=== PATIENT | female | born 1955 | race Caucasian/White ===

== ENCOUNTER → 2017-04-12 | Outpatient (CLI) | payer BC ==
--- NOTE | 2017-04-12 11:10 | RAD ---
DATE: 04/12/2017 EXAM: MAMMO [facility] SCREENING BILATERAL HISTORY: Routine screening COMPARISON: 10/19/2015, 10/07/2015 This study was interpreted with the benefit of Computerized Aided Detection (CAD). The breast parenchyma is heterogeneously dense, which could reduce sensitivity of mammography. Breast parenchyma level C. FINDINGS: 2-D and 3-D tomosynthesis imaging was performed in CC and MLO projections. There is a stable benign-appearing lymph node type density in the posterolateral aspect of the left breast. No new or enlarging breast densities are seen. Slightly increased fibroglandular density in the right retroareolar region just lateral to the midline is unchanged and probably represents a patch of normal fibroglandular tissue. Scattered benign type calcifications are again noted. No suspicious microcalcifications have developed. IMPRESSION: Stable mammograms without evidence of malignancy. BI-RADS CATEGORY: 2 BENIGN FINDING(S) RECOMMENDED FOLLOW-UP: 12M 12 MONTH FOLLOW-UP PQRS compliance statement: Patient information was entered into a reminder system with a target due date for the next mammogram. Mammography is a sensitive method for finding small breast cancers, but it does not detect them all and is not a substitute for careful clinical examination. A negative mammogram does not negate a clinically suspicious finding and should not result in delay in biopsying a clinically suspicious abnormality. "Our facility is accredited by the [employer] Mammography [employer]."
== END | disposition home or self-care (01) ==
LOC: MAMMO 09:32
PROVIDERS: ATTEND Nurse Practitioner Adult Health
DX: Z12.31 Encounter for screening mammogram for malignant neoplasm of breast (principal)
CPT/HCPCS: 77063; G0202; 77067

== ENCOUNTER 2018-04-22 16:44 | Emergency (ER) | payer BC, OTHER ==
[~2018-04-22] VITALS: Ht 165.1 cm; Wt 83.0 kg
--- NOTE | 2018-04-22 17:05 | PHYS DOC ---
Adult General Chief Complaint Chief Complaint: BLOOD IN URINE [facility] HPI Patient is a 62-year-old female who presents with complaint of burning with urination and gross hematuria that started today. Patient states that her first episode of hematuria was just a couple of hours ago and states that she has been having burning with urination for the last few hours. She denies any fever. She does admit to some back pain that is primarily on her right side. She denies any nausea or vomiting and also denies fever. Patient denies any exacerbating or alleviating factors. Review of Systems Review of Systems Constitutional: Denies fever or chills [] Respiratory: Denies cough or shortness of breath [] Cardiovascular: No additional information not addressed in HPI [] GI: Denies abdominal pain, nausea, vomiting or diarrhea [] : Positive dysuria and hematuria [] Musculoskeletal: Complains of right sided lower back pain [] All other systems were reviewed and found to be within normal limits, except as documented in this note. Allergies Allergies Allergies Coded Allergies Type Severity Reaction Last Updated Verified No Known Drug Allergies 04/22/18 No Physical Exam Physical Exam Constitutional: Well developed, well nourished, no acute distress, non-toxic appearance. [] HENT: Normocephalic, atraumatic, bilateral external ears normal, oropharynx moist, no oral exudates, nose normal. [] Eyes: PERRLA, EOMI, conjunctiva normal, no discharge. [] Neck: Normal range of motion, no tenderness, supple, no stridor. [] Cardiovascular: Regular rate and rhythm [] Lungs & Thorax: Bilateral breath sounds clear to auscultation [] Abdomen: Bowel sounds normal, soft, no tenderness. [] Skin: Warm, dry, no erythema, no rash. [] Back: No CVA tenderness. [] Extremities: No tenderness, no cyanosis, no clubbing, ROM intact, no edema. [] Neurologic: Alert and oriented X 3, normal motor function, normal sensory function, no focal deficits noted. [] EKG EKG [] Radiology/Procedures Radiology/Procedures [] Impressions: PROCEDURE: CT ABDOMEN PELVIS WO CONTRAST CT scan abdomen and pelvis without contrast 04/22/2018 CLINICAL HISTORY: Right flank pain and hematuria. TECHNIQUE: Unenhanced, contiguous, 0.625 mm axial sections were obtained through the abdomen and pelvis. One or more of the following individualized dose reduction techniques were utilized for this study: 1. Automated exposure control. 2. Adjustment of the mA and/or kV according to patient size. 3. Use of iterative reconstruction technique. Findings: Images through the lung bases demonstrate a 3 mm calcified granuloma involving the right lower lobe. A 2 mm noncalcified nodule is seen lateral to this. A 6 mm noncalcified nodule is seen inferior to this within the right lower lobe. A 3 mm partially calcified nodule is seen involving the left lower lobe. The liver parenchyma has a decreased attenuation consistent with mild fatty infiltration. The liver is mildly enlarged measuring 21 cm in length. The spleen, pancreas, and left adrenal gland are within normal limits. A 2.4 cm rounded low-attenuation lesion is seen involving the right adrenal gland. This likely represents an adrenal adenoma. A 2 cm rounded low-attenuation lesion is involving the midpole of the left kidney. A 1 cm low-attenuation lesion is involving lower pole left kidney. These likely represent cysts. No renal or ureteral calculus is seen. There is no evidence of obstruction of either collecting system. Atherosclerotic calcification of the abdominal aorta is seen. The abdominal aorta tapers normally. The gallbladder is contracted. No free fluid or free air is seen within the abdomen. There is no evidence of bowel obstruction. The appendix is well-visualized and is within normal limits. There is a small fat-containing umbilical hernia. This measures 2.6 cm in size. Multiple diverticula are seen involving the sigmoid colon. No inflammatory changes are seen in the adjacent fat. Images through the pelvis demonstrate the urinary bladder distended with urine. Calcifications are seen within the pelvis consistent with phleboliths. No adnexal mass is seen. No free fluid is noted. No distal ureteral calculus is seen. Surgical clips are seen within the right inguinal region. Degenerative changes are seen involving the lower thoracic and throughout the lumbar spine and both hips. IMPRESSION: No acute abnormality is seen. Electronically signed by: Kris Maloney MD (04/22/2018 5:26 PM) [facility] Course & Med Decision Making Course & Med Decision Making Pertinent Labs and Imaging studies reviewed. (See chart for details) [] Dragon Disclaimer Dragon Disclaimer This electronic medical record was generated, in whole or in part, using a voice recognition dictation system. Departure Departure: Impression: Primary Impression: UTI (urinary tract infection) Disposition: 01 HOME, SELF-CARE Condition: STABLE Referrals: FABIOLA HERNANDEZ MD (PCP) Patient Instructions: Hematuria, Adult, Urinary Tract Infection Scripts Phenazopyridine Hcl (PYRIDIUM) 100 Mg Tablet 100 MG PO TID PRN for URINARY PAIN, #12 TAB Prov: TRINA BENTON Jr. DO 04/22/18 Sulfamethoxazole/Trimethoprim (BACTRIM DS TABLET) 1 Each Tablet 1 TAB PO BID for infection, #14 TAB Prov: TRINA BENTON Jr. DO 04/22/18 Problem Qualifiers Primary Impression: UTI (urinary tract infection) Urinary tract infection type: site unspecified Hematuria presence: with hematuria Qualified Codes: N39.0 - Urinary tract infection, site not specified ; R31.9 - Hematuria, unspecified TRINA BENTON Jr. DO Apr 22, 2018 17:05
--- NOTE | 2018-04-22 17:30 | RAD ---
CT scan abdomen and pelvis without contrast 04/22/2018 CLINICAL HISTORY: Right flank pain and hematuria. TECHNIQUE: Unenhanced, contiguous, 0.625 mm axial sections were obtained through the abdomen and pelvis. One or more of the following individualized dose reduction techniques were utilized for this study: 1. Automated exposure control. 2. Adjustment of the mA and/or kV according to patient size. 3. Use of iterative reconstruction technique. Findings: Images through the lung bases demonstrate a 3 mm calcified granuloma involving the right lower lobe. A 2 mm noncalcified nodule is seen lateral to this. A 6 mm noncalcified nodule is seen inferior to this within the right lower lobe. A 3 mm partially calcified nodule is seen involving the left lower lobe. The liver parenchyma has a decreased attenuation consistent with mild fatty infiltration. The liver is mildly enlarged measuring 21 cm in length. The spleen, pancreas, and left adrenal gland are within normal limits. A 2.4 cm rounded low-attenuation lesion is seen involving the right adrenal gland. This likely represents an adrenal adenoma. A 2 cm rounded low-attenuation lesion is involving the midpole of the left kidney. A 1 cm low-attenuation lesion is involving lower pole left kidney. These likely represent cysts. No renal or ureteral calculus is seen. There is no evidence of obstruction of either collecting system. Atherosclerotic calcification of the abdominal aorta is seen. The abdominal aorta tapers normally. The gallbladder is contracted. No free fluid or free air is seen within the abdomen. There is no evidence of bowel obstruction. The appendix is well-visualized and is within normal limits. There is a small fat-containing umbilical hernia. This measures 2.6 cm in size. Multiple diverticula are seen involving the sigmoid colon. No inflammatory changes are seen in the adjacent fat. Images through the pelvis demonstrate the urinary bladder distended with urine. Calcifications are seen within the pelvis consistent with phleboliths. No adnexal mass is seen. No free fluid is noted. No distal ureteral calculus is seen. Surgical clips are seen within the right inguinal region. Degenerative changes are seen involving the lower thoracic and throughout the lumbar spine and both hips. IMPRESSION: No acute abnormality is seen. Electronically signed by: Kris Maloney MD (04/22/2018 5:26 PM) [facility]
[2018-04-22 17:33] LABS: BACTERIA,URINE MOD /HPF (0-FEW); BILIRUBIN,URINE NEG (NEG); CLARITY,URINE BLOODY; COLOR,URINE RED; GLUCOSE,URINE NEG (NEG); NITRITE,URINE NEG (NEG); RBC,URINE >40 /HPF (0-2); SQUAMOUS EPITHELIAL CELL,UR FEW /LPF; UROBILINOGEN,URINE 0.2 mg/dL (0.2 mg/dL); WBC,URINE >40 /HPF (0-4)
[2018-04-22] MEDS ORDERED: SMZ/TMP 800/160MG TABLET. PO ONE (17:45)
[2018-04-22] MEDS ORDERED: PHENAZOPYRIDINE 100 MG TABLET. PO ONE (17:45)
[2018-04-22] MEDS ORDERED: PHEN100T82 PO (17:55)
[2018-04-22] MEDS ORDERED: SULF1TAB24 PO (17:55)
[2018-04-22 18:05] VITALS: BP 158/96
== END 2018-04-22 18:10 | disposition home or self-care (01) ==
LOC: ER 16:44
DX: N39.0 Urinary tract infection, site not specified (principal); R31.0 Gross hematuria
CPT/HCPCS: 74176; 81001; 87086; 99284-25

== ENCOUNTER 2018-06-08 10:14 | Emergency (ER) | payer BC, OTHER ==
[~2018-06-08] VITALS: Ht 165.1 cm; Wt 72.6 kg
[~2018-06-08 10:14] MED LIST: PHEN100T82 PO; SULF1TAB24 PO
[2018-06-08] MEDS ORDERED: TRAM-48 PO (11:26)
[2018-06-08] MEDS ORDERED: IBUP800T19 PO (11:26)
[2018-06-08] MEDS ORDERED: PENI500T PO (11:26)
--- NOTE | 2018-06-08 11:27 | PHYS DOC ---
Past History Past Medical History: No Pertinent History Past Surgical History: Smoking: Non-smoker Alcohol Use: Occasionally Drug Use: None Adult General Chief Complaint Chief Complaint: DENTAL PROBLEM HPI HPI Patient is a 62 year old female who presents with facial edema and dental pain. She'll complaining of right lower jaw and tooth pain for the last 2 days with temperature edema of face and right side of neck. Patient states her edema getting worse but her pain is getting better today and rated her pain 3/10. Patient denies fever, nausea and vomiting, chest pain and shortness of breath. Review of Systems Review of Systems Constitutional: Denies fever or chills [] Eyes: Denies change in visual acuity, redness, or eye pain [] HENT: Denies nasal congestion or sore throat, reports dental pain Cardiovascular: No additional information not addressed in HPI [] GI: Denies abdominal pain, nausea, vomiting, bloody stools or diarrhea [] : Denies dysuria or hematuria [] Musculoskeletal: Denies back pain or joint pain [] Integument: Denies rash or skin lesions [] Neurologic: Denies headache, focal weakness or sensory changes [] Endocrine: Denies polyuria or polydipsia [] All other systems were reviewed and found to be within normal limits, except as documented in this note. Current Medications Current Medications Current Medications Medications (Trade) Dose Ordered Sig/Aditya Start Time Stop Time Status Last Admin Dose Admin Ceftriaxone Sodium (Rocephin Im) 1 gm 1X ONCE 06/08/18 11:15 06/08/18 11:16 UNV Allergies Allergies Allergies Coded Allergies Type Severity Reaction Last Updated Verified No Known Drug Allergies 04/22/18 No Physical Exam Physical Exam Constitutional: Well developed, well nourished, mild acute distress, non-toxic appearance. [] HENT: Normocephalic, atraumatic, right lower facial and neck mild edema without erythema or tenderness. #31with edema and tenderness, bilateral external ears normal, oropharynx moist, no oral exudates, nose normal. [] Eyes: PERRLA, EOMI, conjunctiva normal, no discharge. [] Neck: Normal range of motion, no tenderness, supple, no stridor. [] Cardiovascular:Heart rate regular rhythm, no murmur [] Lungs & Thorax: Bilateral breath sounds clear to auscultation [] Skin: Warm, dry, no erythema, no rash. [] Extremities: No tenderness, no cyanosis, no clubbing, ROM intact, no edema. [] Neurologic: Alert and oriented X 3 Psychologic: Affect normal, judgement normal, mood normal. [] EKG EKG [] Radiology/Procedures Radiology/Procedures [] Course & Med Decision Making Course & Med Decision Making Evaluation of patient in ER showed 62-year-old female patient without medical problem and complaining of dental pain and facial edema. Patient had facial cellulitis and treated with Rocephin IM in ER. Plan to discharge patient home with prescription of pen VK and Ultram and ibuprofen and instruction to follow up with her dentist. Dragon Disclaimer Dragon Disclaimer This electronic medical record was generated, in whole or in part, using a voice recognition dictation system. Departure Departure: Impression: Primary Impression: Dental abscess Additional Impression: Facial cellulitis Disposition: HOME, SELF-CARE Condition: STABLE Referrals: FABIOLA HERNANDEZ MD (PCP) Patient Instructions: Cellulitis, Dental Abscess Additional Instructions: Drink plenty of liquids Follow-up with your dentist in 3-5 days Return to ER if not getting better Scripts Tramadol Hcl (ULTRAM) 50 Mg Tablet 50 MG PO PRN Q6HRS PRN for PAIN, #14 TAB Prov: REGULO SINGER MD 06/08/18 Penicillin V Potassium (PENICILLIN V POTASSIUM) 500 Mg Tablet 2 TAB PO Q12HR for Infection, #40 TAB Prov: REGULO SINGER MD 06/08/18 Ibuprofen (IBUPROFEN) 800 Mg Tablet 1 TAB PO TID for pain, #30 TAB Prov: REGULO SINGER MD 06/08/18 Problem Qualifiers REGULO SINGER MD Jun 08, 2018 11:27
[2018-06-08] MEDS ORDERED: cefTRIAXone IM 1 GM VIAL IM ONE (11:30)
[2018-06-08 11:36] VITALS: BP 140/91
== END 2018-06-08 12:07 | disposition home or self-care (01) ==
LOC: ER 10:14
DX: K04.7 Periapical abscess without sinus (principal); L03.211 Cellulitis of face
CPT/HCPCS: 96372; 99283; J0696

== ENCOUNTER → 2021-08-01 | Outpatient (CLI) | payer BC, OTHER ==
[~2021-08-01] MED LIST changes: +IBUP800T19 PO; +PENI500T PO; +TRAM-48 PO
--- NOTE | 2021-08-01 15:38 | RAD ---
DXA BONE DENSITY AXIAL History: Reason: POST MENOPAUSAL / Spl. Instructions: / History: Comparison: None. TECHNIQUE: Dual energy x-ray absorptiometry of the lumbar spine and right hip was performed. T-score of average bone mineral density based was calculated based on standard deviations above or below the expected young adult normal value. Diagnostic definitions were established by the [employer]. FINDINGS: The average bone mineral density associated with L1-L4 is 1.185 g/cm^2, corresponding with a T-score of 0. The average total bone mineral density associated with right hip is 0.994 g/cm^2, corresponding with a T-score of 0.3. Refer to the worksheets for full detail. IMPRESSION: 1. Normal. Average bone mineral density yields a T-score of -1.0 or greater. Fracture risk is low. Electronically signed by: Jeff Parson DO (08/01/2021 3:35 PM) [id number]
--- NOTE | 2021-08-01 16:36 | RAD ---
Bilateral digital screening 2-D and 3-D (digital breast tomosynthesis) mammogram: Reason for examination: Routine screening. Comparison: Mammograms from 10/07/2015 and 04/12/2017. Interpretation was made with the benefit of CAD. FINDINGS: Breast density: Category B. There are scattered areas of fibroglandular density. No suspicious breast mass, malignant appearing calcifications, or architectural distortion is seen. IMPRESSION: No evidence of malignancy. Assessment: BI-RADS 1. Negative. Recommendation: Routine screening mammograms. The patient will receive a letter with the results in the mail. Patient information will be entered i nto the mammography reminder system with a target recall date for the next mammogram. A reminder karyn er will be generated. Electronically signed by: Gabrielle Christy MD (08/01/2021 4:33 PM) [id number]
== END ==
LOC: MAMMO 09:49
PROVIDERS: ATTEND Nurse Practitioner Adult Health
DX: Z12.31 Encounter for screening mammogram for malignant neoplasm of breast (principal); Z78.0 Asymptomatic menopausal state
CPT/HCPCS: 77063; 77067; 77080